=== PATIENT | female | born 1950 | race Caucasian/White ===

== ENCOUNTER 2021-01-12 07:37 | Emergency (ER) | payer MEDICARE ==
[2021-01-12] MEDS ORDERED: Sodium Chloride 0.9% 1,000 ML IV SCH (08:15)
--- NOTE | 2021-01-12 08:51 | EDM.PDOC ---
ED HPI GENERAL MEDICAL PROBLEM - General Chief Complaint: Fever Stated Complaint: FEVER/BODY ACHES Time Seen by Provider: 01/12/21 08:00 Source of Information: Reports: Patient History Limitations: Reports: No Limitations - History of Present Illness INITIAL COMMENTS - FREE TEXT/NARRATIVE: 70 year old otherwise healthy female presents to ED after 2 weeks of body aches, congestion, intermittent diarrhea. She developed a 101.2 degree temp today with continued body aches and headache. Denies cough, SOB, CP, N/V, abdominal pain. The symptoms started shortly after receiving her 2nd COVID vaccine. She has baseline issues with circulation in her hands but reports an episode of her fingers turning white and tingling that was resolved after using warm water. Location: Reports: Generalized Quality: Reports: Ache Improves with: Reports: None Worsens with: Reports: None Associated Symptoms: Reports: Fever/Chills, Headaches, Loss of Appetite Generalized Pain Score (Numeric/FACES): 6 - Related Data Allergies Allergy/AdvReac Type Severity Reaction Status Date / Time No Known Allergies Allergy Verified 01/12/21 08:50 Home Meds: Home Meds Ferrous Sulfate 325 mg PO WITHBREAKFAST 01/12/21 [History] Pantoprazole 20 mg PO BEDTIME 01/12/21 [History] Past Medical History Other Musculoskeletal History: being seen today for injured left pinky toe Other Hematologic History: takes iron supplementation ED ROS GENERAL - Review of Systems Review Of Systems: See Below Constitutional: Reports: Fever, Malaise, Decreased Appetite HEENT: Reports: No Symptoms Respiratory: Reports: No Symptoms Cardiovascular: Reports: No Symptoms Endocrine: Reports: No Symptoms GI/Abdominal: Reports: Diarrhea : Reports: No Symptoms Musculoskeletal: Reports: Other (generalized body aches) Skin: Reports: Change in Color (fingertips are purple after IV start, patient states this is normal for her.) Neurological: Reports: No Symptoms Psychiatric: Reports: No Symptoms Immunologic: Reports: No Symptoms ED EXAM, GENERAL - Physical Exam Exam: See Below Exam Limited By: No Limitations General Appearance: Alert, No Apparent Distress Eye Exam: Bilateral Eye: Normal Inspection, PERRL Ears: Normal External Exam, Normal Canal, Hearing Grossly Normal, Normal TMs Ear Exam: Bilateral Ear: Auricle Normal, Canal Normal, TM normal Nose: Normal Inspection, Normal Mucosa, No Blood Throat/Mouth: Normal Inspection, Normal Lips, Normal Teeth, Normal Gums, Normal Oropharynx, Normal Voice, No Airway Compromise Head: Atraumatic Neck: Normal Inspection, Non-Tender, Full Range of Motion Respiratory/Chest: No Respiratory Distress, Lungs Clear, Normal Breath Sounds, No Accessory Muscle Use, Chest Non-Tender Cardiovascular: Normal Peripheral Pulses, No Edema, No JVD, No Murmur, Tachycardia Peripheral Pulses: 3+: Carotid (L), Carotid (R), Radial (L), Radial (R), Posterior Tibial (L), Posterior Tibial (R), Dorsalis Pedis (L), Dorsalis Pedis (R) GI/Abdominal: Normal Bowel Sounds, Soft, Non-Tender Back Exam: Normal Inspection, Full Range of Motion Extremities: Normal Range of Motion, Non-Tender, No Pedal Edema, Normal Capillary Refill Neurological: Alert, Oriented, CN II-XII Intact, Normal Cognition, Normal Gait, Normal Reflexes, No Motor/Sensory Deficits Psychiatric: Normal Affect, Normal Mood Skin Exam: Warm, Dry, Intact Lymphatic: No Adenopathy Course - Vital Signs Last Recorded V/S: Last Vital Signs Temp 99.9 F 01/12/21 08:25 Pulse 129 H 01/12/21 08:25 Resp 16 01/12/21 08:25 BP 137/70 01/12/21 08:25 Pulse Ox 98 01/12/21 08:25 - Orders/Labs/Meds Orders: Active Orders 24 hr Category Date Time Status EKG Documentation Completion [RC] ASDIRECTED Care 01/12/21 08:20 Active CXR [Chest 1V Frontal] [CR] Stat Exams 01/12/21 08:45 Taken CULTURE BLOOD [BC] Stat Lab 01/12/21 08:44 Received Labs: Laboratory Tests 01/12/21 01/12/21 01/12/21 Range/Units 08:15 08:40 09:20 WBC 10.4 (4.0-11.0) K/uL RBC 3.52 L (3.80-5.80) M/uL Hgb 10.6 L (11.5-16.5) g/dL Hct 32.4 L (37.0-47.0) % MCV 92 (76-96) fL MCH 30.1 (27.0-32.0) pg MCHC 32.7 (31.0-35.0) g/dL RDW 13.1 (11.0-16.0) % Plt Count 397 (150-500) K/uL MPV 8.7 (6.0-10.0) fL Neut % (Auto) 81.0 H (45.0-70.0) % Lymph % (Auto) 8.7 L (20.0-40.0) % Gilmer % (Auto) 9.7 (3.0-10.0) % Eos % (Auto) 0.4 L (1.0-5.0) % Baso % (Auto) 0.2 (0.0-0.5) % Neut # (Auto) 8.40 H (2.00-7.50) K/uL Lymph # (Auto) 0.90 L (1.50-4.00) K/uL Gilmer # (Auto) 1.00 H (0.20-0.80) K/uL Eos # (Auto) 0.04 (0.04-0.40) K/uL Baso # (Auto) 0.02 (0.02-0.10) K/uL Sodium (136-145) mmol/L Potassium (3.5-5.1) mmol/L Chloride (98-107) mmol/L Carbon Dioxide (21.0-32.0) mmol/L Anion Gap (5.0-15.0) mmol/L BUN (8-26) mg/dL Creatinine (0.55-1.02) mg/dL Est Cr Clr Drug Dosing mL/min Estimated GFR (MDRD) (>60) MLS/MIN BUN/Creatinine Ratio (6-25) Glucose (74-100) mg/dL Lactic Acid (0.4-2.0) mmol/L Calcium (8.5-10.1) mg/dL Total Bilirubin (0.0-1.0) mg/dL AST (15-37) U/L ALT (12-78) U/L Alkaline Phosphatase (46-116) U/L Total Protein (6.4-8.2) g/dL Albumin (3.4-5.0) g/dL Globulin (2.2-4.2) g/dL Albumin/Globulin Ratio (0.8-2.0) TSH, Ultra Sensitive (0.358-3.740) uIU/mL Urine Color Yellow Urine Appearance Clear (CLEAR) Urine pH 7.0 (5.0-8.0) Ur Specific [place] 1.015 (1.003-1.030) Urine Protein 30 H (NEGATIVE) mg/dL Urine Glucose (UA) Negative (NEGATIVE) mg/dL Urine Ketones 15 H (NEGATIVE) mg/dL Urine Occult Blood Negative (NEGATIVE) Urine Nitrite Negative (NEGATIVE) Urine Bilirubin Negative (NEGATIVE) Urine Urobilinogen 0.2 (0.2-1.0) E.U./dL Ur Leukocyte Esterase Negative (NEGATIVE) Urine RBC Not seen /HPF Urine WBC 0-5 H /HPF Ur Squamous Epith Cells Few /HPF SARS CoV-2 RNA Rapid JAMEL Negative 01/12/21 01/12/21 Range/Units 09:20 09:20 WBC (4.0-11.0) K/uL RBC (3.80-5.80) M/uL Hgb (11.5-16.5) g/dL Hct (37.0-47.0) % MCV (76-96) fL MCH (27.0-32.0) pg MCHC (31.0-35.0) g/dL RDW (11.0-16.0) % Plt Count (150-500) K/uL MPV (6.0-10.0) fL Neut % (Auto) (45.0-70.0) % Lymph % (Auto) (20.0-40.0) % [place] % (Auto) (3.0-10.0) % Eos % (Auto) (1.0-5.0) % Baso % (Auto) (0.0-0.5) % Neut # (Auto) (2.00-7.50) K/uL Lymph # (Auto) (1.50-4.00) K/uL [place] # (Auto) (0.20-0.80) K/uL Eos # (Auto) (0.04-0.40) K/uL Baso # (Auto) (0.02-0.10) K/uL Sodium 141 (136-145) mmol/L Potassium 4.3 (3.5-5.1) mmol/L Chloride 104 (98-107) mmol/L Carbon Dioxide 27.8 (21.0-32.0) mmol/L Anion Gap 13.5 (5.0-15.0) mmol/L BUN 7 L (8-26) mg/dL Creatinine 0.74 D (0.55-1.02) mg/dL Est Cr Clr Drug Dosing 58.06 mL/min Estimated GFR (MDRD) > 60 (>60) MLS/MIN BUN/Creatinine Ratio 9.5 (6-25) Glucose 104 H (74-100) mg/dL Lactic Acid 0.7 (0.4-2.0) mmol/L Calcium 8.3 L (8.5-10.1) mg/dL Total Bilirubin 0.3 (0.0-1.0) mg/dL AST 17 (15-37) U/L ALT 18 (12-78) U/L Alkaline Phosphatase 85 (46-116) U/L Total Protein 6.4 (6.4-8.2) g/dL Albumin 2.2 L (3.4-5.0) g/dL Globulin 4.2 (2.2-4.2) g/dL Albumin/Globulin Ratio 0.5 L (0.8-2.0) TSH, Ultra Sensitive 0.813 (0.358-3.740) uIU/mL Urine Color Urine Appearance (CLEAR) Urine pH (5.0-8.0) Ur Specific [place] (1.003-1.030) Urine Protein (NEGATIVE) mg/dL Urine Glucose (UA) (NEGATIVE) mg/dL Urine Ketones (NEGATIVE) mg/dL Urine Occult Blood (NEGATIVE) Urine Nitrite (NEGATIVE) Urine Bilirubin (NEGATIVE) Urine Urobilinogen (0.2-1.0) E.U./dL Ur Leukocyte Esterase (NEGATIVE) Urine RBC /HPF Urine WBC /HPF Ur Squamous Epith Cells /HPF SARS CoV-2 RNA Rapid JAMEL Departure - Departure Time of Disposition: 10:29 Disposition: Home, Self-Care 01 Clinical Impression: Viral illness - Discharge Information *PRESCRIPTION DRUG MONITORING PROGRAM REVIEWED*: Not Applicable *COPY OF PRESCRIPTION DRUG MONITORING REPORT IN PATIENT LEIDY: Not Applicable Instructions: Viral Illness, Adult, Fever, Adult, [id number] Forms: ED Department Discharge Additional Instructions: I am glad you are feeling better after the IV fluids. Please call/return to ED if symptoms increase or new symptoms begin in spite of using tylenol and ibuprofen. Increase your fluids, rest. Follow up with your primary MD Friday. Take WITH FOOD 600mg Ibuprofen and 500 mg tylenol every 6 hours for the bodyaches and STOKES. Sepsis Event Note (ED) - Focused Exam Vital Signs: Vital Signs Temp Pulse Resp BP Pulse Ox 01/12/21 08:25 99.9 F 129 H 16 137/70 98 01/12/21 08:00 99.9 F 129 H 16 137/70 98 - My Orders Last 24 Hours: My Active Orders 01/12/21 08:20 EKG Documentation Completion [RC] ASDIRECTED 01/12/21 08:44 CULTURE BLOOD [BC] Stat 01/12/21 08:45 CXR [Chest 1V Frontal] [CR] Stat - Assessment/Plan Last 24 Hours: My Active Orders 01/12/21 08:20 EKG Documentation Completion [RC] ASDIRECTED 01/12/21 08:44 CULTURE BLOOD [BC] Stat 01/12/21 08:45 CXR [Chest 1V Frontal] [CR] Stat Assessment:: patient STOKES improved after receiving IV fluids. Verbalized understanding of DC instructions. All questions were answered prior to DC.
--- NOTE | 2021-01-12 08:59 | PCM.EKG ---
#1 Interpretation EKG Date: 01/12/21 Time: 08:23 Rhythm: Other (sinus tachycardia) P-Wave: Present QT: Normal Comparison: NA - No Prior EKG
[2021-01-12 11:14] VITALS: BP 126/62; PULSE 108
--- NOTE | 2021-01-12 15:21 | CR ---
DATE OF SERVICE: 01/12/2021 CLINICAL DATA: Fever. AP CHEST: The heart size is normal. The lungs are clear. No pneumothorax. No pleural effusions. No evidence of acute intrathoracic disease. [id number] MTDD
== END 2021-01-12 10:40 | disposition home or self-care (01) ==
LOC: LB.ED 07:37
DX: U07.1 COVID-19 (principal); J12.82 Pneumonia due to coronavirus disease 2019; N39.0 Urinary tract infection, site not specified; G03.9 Meningitis, unspecified; Z79.899 Other long term (current) drug therapy
CPT/HCPCS: 36415; 71045; 80053; 81001; 83605; 84443; 85025; 87040; 93005; 99283; 99284-25; J7030; U0002

== ENCOUNTER 2021-01-21 19:35 | Emergency (ER) | payer MEDICARE ==
[2021-01-21] MEDS ORDERED: Sodium Chloride 0.9% 50 ML SDV FLUSH ONE (20:28)
[2021-01-21] MEDS ORDERED: Iopamidol 612 MG/ML 100 ML Bottle IV SCH (20:30)
[2021-01-21 20:51] VITALS: BP 150/76; PULSE 114
[2021-01-21] MEDS ORDERED: Pantoprazole 40 MG Vial IVPUSH ONE (21:08)
[2021-01-21] MEDS ORDERED: Morphine 2 MG/ML SYRINGE IVPUSH ONE (21:08)
[2021-01-21] MEDS ORDERED: Sodium Chloride 0.9% 1,000 ML IV ONE (21:09)
--- NOTE | 2021-01-21 21:49 | EDM.PDOC ---
ED HPI GENERAL MEDICAL PROBLEM - General Chief Complaint: Gastrointestinal Problem Stated Complaint: ABDOMINAL PAIN Time Seen by Provider: 01/21/21 21:00 Source of Information: Reports: Patient, RN History Limitations: Reports: No Limitations - History of Present Illness INITIAL COMMENTS - FREE TEXT/NARRATIVE: Ms. aRzo is a 70 YOF who came to the ED with increasing pitting edema in both legs and intense midline abdominal pain. She sates she feels like her belly is on fire. Rated her pain 10/10. Has history of Hussein's esophageus. Patient stated that she was seen here at the ED a week ago Friday for not being able to walk, was Covid swabbed negative at that time. She was d/c and followed up at [facility] and had swelling starting in both feet, and a high d-dimer. Sw elling in legs got worse starting Friday. Has had both COVID vaccinations. Last one on December 15. Today she has not taken anything for her symptoms. 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 Other Musculoskeletal History: being seen today for injured left pinky toe Other Hematologic History: takes iron supplementation - Past Surgical History Other GI Surgeries/Procedures: esophageal veracies Female Surgical History: Reports: Section Social & Family History - Family History Family Medical History: Unobtainable - Tobacco Use Tobacco Use Status *Q: Never Tobacco User Second Hand Smoke Exposure: No - Caffeine Use Caffeine Use: Reports: Coffee - Recreational Drug Use Recreational Drug Use: No ED ROS GENERAL - Review of Systems Review Of Systems: See Below Cardiovascular: Reports: Edema GI/Abdominal: Reports: Abdominal Pain, Decreased Appetite, Nausea ED EXAM, GI/ABD - Physical Exam Exam: See Below Exam Limited By: No Limitations General Appearance: Alert, WD/WN, No Apparent Distress Ears: Normal External Exam, Normal Canal, Hearing Grossly Normal Nose: Normal Inspection, Normal Mucosa Throat/Mouth: Normal Inspection, Normal Lips, Normal Teeth, Normal Gums, Normal Oropharynx Head: Atraumatic, Normocephalic Neck: Normal Inspection, Supple, Non-Tender Respiratory/Chest: No Respiratory Distress, Lungs Clear, Normal Breath Sounds Cardiovascular: Normal Peripheral Pulses, Other (mild tachycardia ) GI/Abdominal Exam: Normal Bowel Sounds, Other (Firm and distended, no guarding) (Female) Exam: Deferred Rectal (Female) Exam: Deferred Back Exam: Normal Inspection Extremities: Pedal Edema Neurological: Alert, Oriented, CN II-XII Intact Psychiatric: Normal Affect, Normal Mood Skin Exam: Warm, Dry, Intact, Other (+2 pitting edema ) Lymphatic: No Adenopathy Course - Vital Signs Last Recorded V/S: Last Vital Signs Temp 37.1 C 01/21/21 20:35 Pulse 114 H 01/21/21 20:35 Resp 18 01/21/21 20:35 BP 150/76 H 01/21/21 20:35 Pulse Ox 99 01/21/21 20:35 - Orders/Labs/Meds Orders: Active Orders 24 hr Category Date Time Status Chest Abdomen Pelvis w Cont [CT] Stat Exams 01/21/21 20:36 Taken Iopamidol [Isovue-300 (61%)] Med 01/21/21 20:30 Active 100 ml IV . DIRECTED Sodium Chloride 0.9% [Normal Saline] 1,000 ml Med 01/21/21 21:09 Active IV .BOLUS Medication Orders Sodium Chloride (Normal Saline) 1,000 mls @ 999 drops/hr IV .BOLUS ONE Stop: 01/22/21 12:09 Last Admin: 01/21/21 21:14 Dose: 999 drops/hr Documented by: ENRIQUE Iopamidol (Iopamidol 612 Mg/Ml 100 Ml Bottle) 100 ml IV . DIRECTED [facility] Last Admin: 01/21/21 21:19 Dose: 100 ml Documented by: JAYDA Labs: Laboratory Tests 01/21/21 01/21/21 01/21/21 Range/Units 19:50 20:00 20:45 WBC 11.6 H (4.0-11.0) K/uL RBC 3.67 L (3.80-5.80) M/uL Hgb 10.6 L (11.5-16.5) g/dL Hct 32.5 L (37.0-47.0) % MCV 89 (76-96) fL MCH 28.9 (27.0-32.0) pg MCHC 32.6 (31.0-35.0) g/dL RDW 13.4 (11.0-16.0) % Plt Count 434 (150-500) K/uL MPV 8.5 (6.0-10.0) fL Neut % (Auto) 82.0 H (45.0-70.0) % Lymph % (Auto) 10.7 L (20.0-40.0) % Jack % (Auto) 6.1 (3.0-10.0) % Eos % (Auto) 1.0 (1.0-5.0) % Baso % (Auto) 0.2 (0.0-0.5) % Neut # (Auto) 9.53 H (2.00-7.50) K/uL Lymph # (Auto) 1.25 L (1.50-4.00) K/uL Jack # (Auto) 0.71 (0.20-0.80) K/uL Eos # (Auto) 0.12 (0.04-0.40) K/uL Baso # (Auto) 0.02 (0.02-0.10) K/uL D-Dimer, Quantitative 3350 H (0-400) ng/mL Sodium (136-145) mmol/L Potassium (3.5-5.1) mmol/L Chloride (98-107) mmol/L Carbon Dioxide (21.0-32.0) mmol/L Anion Gap (5.0-15.0) mmol/L BUN (8-26) mg/dL Creatinine (0.55-1.02) mg/dL Est Cr Clr Drug Dosing mL/min Estimated GFR (MDRD) (>60) MLS/MIN BUN/Creatinine Ratio (6-25) Glucose (74-100) mg/dL Calcium (8.5-10.1) mg/dL Total Bilirubin (0.0-1.0) mg/dL AST (15-37) U/L ALT (12-78) U/L Alkaline Phosphatase (46-116) U/L Total Protein (6.4-8.2) g/dL Albumin (3.4-5.0) g/dL Globulin (2.2-4.2) g/dL Albumin/Globulin Ratio (0.8-2.0) Urine Color Urine Appearance (CLEAR) Urine pH (5.0-8.0) Ur Specific [place] (1.003-1.030) Urine Protein (NEGATIVE) mg/dL Urine Glucose (UA) (NEGATIVE) mg/dL Urine Ketones (NEGATIVE) mg/dL Urine Occult Blood (NEGATIVE) Urine Nitrite (NEGATIVE) Urine Bilirubin (NEGATIVE) Urine Urobilinogen (0.2-1.0) E.U./dL Ur Leukocyte Esterase (NEGATIVE) SARS-CoV-2 RNA (JAMEL) Negative (NEGATIVE) 01/21/21 01/21/21 Range/Units 20:45 22:20 WBC (4.0-11.0) K/uL RBC (3.80-5.80) M/uL Hgb (11.5-16.5) g/dL Hct (37.0-47.0) % MCV (76-96) fL MCH (27.0-32.0) pg MCHC (31.0-35.0) g/dL RDW (11.0-16.0) % Plt Count (150-500) K/uL MPV (6.0-10.0) fL Neut % (Auto) (45.0-70.0) % Lymph % (Auto) (20.0-40.0) % Jack % (Auto) (3.0-10.0) % Eos % (Auto) (1.0-5.0) % Baso % (Auto) (0.0-0.5) % Neut # (Auto) (2.00-7.50) K/uL Lymph # (Auto) (1.50-4.00) K/uL Jack # (Auto) (0.20-0.80) K/uL Eos # (Auto) (0.04-0.40) K/uL Baso # (Auto) (0.02-0.10) K/uL D-Dimer, Quantitative (0-400) ng/mL Sodium 140 (136-145) mmol/L Potassium 3.5 (3.5-5.1) mmol/L Chloride 101 (98-107) mmol/L Carbon Dioxide 29.9 (21.0-32.0) mmol/L Anion Gap 12.6 (5.0-15.0) mmol/L BUN 9 D (8-26) mg/dL Creatinine 0.59 D (0.55-1.02) mg/dL Est Cr Clr Drug Dosing 72.83 mL/min Estimated GFR (MDRD) > 60 (>60) MLS/MIN BUN/Creatinine Ratio 15.3 (6-25) Glucose 108 H (74-100) mg/dL Calcium 8.4 L (8.5-10.1) mg/dL Total Bilirubin 0.3 (0.0-1.0) mg/dL AST 27 (15-37) U/L ALT 28 (12-78) U/L Alkaline Phosphatase 97 (46-116) U/L Total Protein 6.1 L (6.4-8.2) g/dL Albumin 2.1 L (3.4-5.0) g/dL Globulin 4.0 (2.2-4.2) g/dL Albumin/Globulin Ratio 0.5 L (0.8-2.0) Urine Color Yellow Urine Appearance Clear (CLEAR) Urine pH 7.5 (5.0-8.0) Ur Specific [place] 1.020 (1.003-1.030) Urine Protein Negative (NEGATIVE) mg/dL Urine Glucose (UA) Negative (NEGATIVE) mg/dL Urine Ketones Negative (NEGATIVE) mg/dL Urine Occult Blood Negative (NEGATIVE) Urine Nitrite Negative (NEGATIVE) Urine Bilirubin Negative (NEGATIVE) Urine Urobilinogen 0.2 (0.2-1.0) E.U./dL Ur Leukocyte Esterase Negative (NEGATIVE) SARS-CoV-2 RNA (JAMEL) (NEGATIVE) Meds: Medications Generic Name Dose Route Start Last Admin Trade Name Freq PRN Reason Stop Dose Admin Sodium Chloride 1,000 mls @ 999 drops/hr 01/21/21 21:09 01/21/21 21:14 Normal Saline IV 01/22/21 12:09 999 drops/hr .BOLUS ONE Administration Iopamidol 100 ml 01/21/21 20:30 01/21/21 21:19 Iopamidol 612 Mg/Ml 100 Ml Bottle IV 100 ml . DIRECTED APRYL Administration Discontinued Medications Generic Name Dose Route Start Last Admin Trade Name Freq PRN Reason Stop Dose Admin Ciprofloxacin/Dextrose 400 mg/ 200 mls @ 200 mls/hr 01/21/21 22:01 01/21/21 22:16 Premix IV 01/21/21 23:00 200 mls/hr ONETIME ONE Administration Morphine Sulfate 1 mg 01/21/21 21:08 01/21/21 21:21 Morphine 2 Mg/Ml Syringe IVPUSH 01/21/21 21:09 1 mg ONETIME ONE Administration Pantoprazole Sodium 40 mg 01/21/21 21:08 01/21/21 21:25 Pantoprazole 40 Mg Vial IVPUSH 01/21/21 21:09 40 mg ONETIME ONE Administration Sodium Chloride 50 ml 01/21/21 20:28 01/21/21 21:19 Sodium Chloride 0.9% 50 Ml Sdv FLUSH 01/21/21 20:29 50 ml ONETIME ONE Administration Departure - Departure Time of Disposition: 23:00 Disposition: Home, Self-Care 01 Condition: Good Clinical Impression: Gastroenteritis Hussein esophagus Qualifiers: 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 Follow up in [place] ER for further work up Care Plan Goals: Finish all medication as prescribed. Cipro 500mg, twice daily for 10 days. Follow up with PCP or ED for new or worsening symptoms. Recommend to FU in [place] to get consultation from General surgery per CT evaluation. Follow up with GI for EDG as discussed with her private physician. Sepsis Event Note (ED) - Evaluation Sepsis Screening Result: Sepsis Risk - Focused Exam Vital Signs: Vital Signs Temp Pulse Resp BP Pulse Ox 01/21/21 20:35 37.1 C 114 H 18 150/76 H 99 - Problem List Review Problem List Initiated/Reviewed/Updated: Yes - My Orders Last 24 Hours: My Active Orders 01/21/21 20:30 Iopamidol [Isovue-300 (61%)] 100 ml IV . DIRECTED 01/21/21 20:36 Chest Abdomen Pelvis w Cont [CT] Stat 01/21/21 21:09 Sodium Chloride 0.9% [Normal Saline] 1,000 ml IV .BOLUS - Assessment/Plan Last 24 Hours: My Active Orders 01/21/21 20:30 Iopamidol [Isovue-300 (61%)] 100 ml IV . DIRECTED 01/21/21 20:36 Chest Abdomen Pelvis w Cont [CT] Stat 01/21/21 21:09 Sodium Chloride 0.9% [Normal Saline] 1,000 ml IV .BOLUS Assessment:: Gastroenteritis Plan: Finish all medication as prescribed. Follow up with PCP or ED for new or worsening symptoms. Recommend to [facility]U in [place] to get consultation from General surgery per CT evaluation. Follow up with GI for EDG as discussed with her private physician.
[2021-01-21] MEDS ORDERED: Ciprofloxacin in D5W 400 MG in Premix Bag 1 BAG IV ONE ×2 (22:01)
--- NOTE | 2021-01-22 08:40 | CT ---
Date of Service: 01/21/21 Clinical Data: R/O PE, ABD PAIN ENHANCED CHEST CT: Multislice axial acquisition with IV contrast was performed. No priors. No evidence of PE. No pneumothorax. No pleural effusions. No aortic aneurysm or dissection. There are mild emphysematous changes throughout both lungs. There are atelectatic changes in the dependent portions of both lungs and there is a small area of consolidation in the right costophrenic angle posteriorly. Pneumonia should be considered. The lungs are otherwise clear. No hilar or mediastinal adenopathy. The heart size is normal. No significant pericardial effusion. No other significant findings. ENHANCED ABDOMEN AND PELVIC CT: Multislice axial acquisition through the abdomen and pelvis with IV, but without oral contrast was performed . No priors. The liver is normal size. There are multiple small low-density lesions scattered throughout the right and left lobes of the liver. These may be multiple cysts. They are too small to adequately characterize. Small metastatic foci cannot be excluded. Followup imaging is recommended. The spleen appears normal. The pancreas appears normal. The right and left adrenals appear normal. The right and left kidneys enhance symmetrically. No hydronephrosis or hydroureter. The bladder is fluid filled. It appears normal. The appendix is not clearly identified. No definite evidence for appendicitis. There is a moderate amount of stool present in the cecum and ascending colon. There are multiple fluid filled loops of small bowel within the lower abdomen and pelvis. They are not distended. There are also several loops of small bowel with apparent mural thickening. Enteritis should be considered. Followup imaging is recommended if clinically indicated. No dilated loops of bowel. No adenopathy. No aortic aneurysm or dissection. No free air. There is a small amount of free fluid noted within the pelvis. There is mild fat stranding of the mesentery. This is nonspecific. There is degenerative disk disease throughout the lumbar spine. There is compression deformity of the T12 vertebra, age indeterminate. No other significant findings. [id number] [facility]
== END 2021-01-21 23:20 | disposition home or self-care (01) ==
LOC: LB.ED 19:35
DX: K52.9 Noninfective gastroenteritis and colitis, unspecified (principal); K22.710 Barrett's esophagus with low grade dysplasia; Z20.822 Contact with and (suspected) exposure to COVID-19
CPT/HCPCS: 36415; 71260; 74177; 80053; 81003; 85025; 85379; 96365; 96375; 99284-25; C9113; J0744; J2270; J7030; Q9967; U0002